=== PATIENT | female | born 1945 | race Caucasian/White ===

== ENCOUNTER → 2021-02-01 | Outpatient (CLI) | payer MEDICARE, OTHER ==
[~2021-02-01] MED LIST: ALBUTEROL SULF8.5 GM INH; ALENDRONATE SOD35 MG PO; CLARITIN10 MG PO; COMMODE MC; DESYREL 50 MG T50 MG PO; FOSAMAX70 MG PO; HYDROCHLOROTHIA25 MG PO; LEVAQUIN750 MG PO; MEDROL DOSEPAK 24 MG PO; NAPROSYN EC 37375 MG PO; NORCO 10-325 T1 EACH PO; OMNICEF 300 MG300 MG PO; OXYGEN; PREVACID30 MG PO; ROBITUSSIN DM473 ML PO; TYLENOL 325MG325 MG PO; VITAMIN D250000 UNIT PO; VITAMIN D50000 UNIT PO; XANAX0.5 MG PO; ZETIA10 MG PO; ZOCOR 40 MG TAB40 MG PO; [UNRECOGNIZED DRUG - SUPPLY] MC
== END ==
LOC: MAMO 01-06 11:30
DX: Z12.31 Encounter for screening mammogram for malignant neoplasm of breast (principal)
CPT/HCPCS: 77063; 77067

== ENCOUNTER 2021-04-10 19:38 | Inpatient (IN) | payer MEDICARE, OTHER ==
[~2021-04-10] VITALS: Ht 157.5 cm; Wt 78.5 kg
[2021-04-10 20:16] LABS: HEMOGLOBIN 17.6 gm/dl (12.3-15.3); RED BLOOD COUNT 5.56 M/UL (4.00-5.10)
[2021-04-10 20:39] LABS: BUN/CREATININE RATIO 18 (0-10)
[2021-04-11] MEDS ORDERED: ALPRAZOLAM0.5 MG PO (00:34)
[2021-04-11] MEDS ORDERED: GABAPENTIN600 MG PO (00:36)
[2021-04-11] MEDS ORDERED: DOXYCYCLINE HY100 MG PO (00:38)
[2021-04-11] MEDS ORDERED: MEDROL DOSEPAK 24 MG PO (00:39)
[2021-04-11] MEDS ORDERED: BREO ELLIPTA 11 EACH INH (00:40)
[2021-04-11] MEDS ORDERED: HYDROCODON-ACE1 EAC6 PO (00:40)
[2021-04-11] MEDS ORDERED: CLARITIN 10MG T10 MG PO (00:40)
[2021-04-11] MEDS ORDERED: ZETIA10 MG PO (00:41)
[2021-04-11] MEDS ORDERED: GLUCOPHAGE 500500 MG GT (00:42)
[2021-04-11] MEDS ORDERED: HYDROCHLOROTHIA25 MG PO (00:43)
[2021-04-11] MEDS ORDERED: LIVALO4 MG PO (00:43)
[2021-04-11] MEDS ORDERED: VENTOLIN HFA 66.7 GM INH (00:44)
[2021-04-11] MEDS ORDERED: VITAMIN D31250 MCG PO (00:44)
[2021-04-11 03:45] LABS: HEMOGLOBIN 15.7 gm/dl (12.3-15.3)
[2021-04-11 04:03] LABS: RED BLOOD COUNT 4.98 M/UL (4.00-5.10); WHITE BLOOD COUNT 7.9 K/UL (4.5-11.0)
[2021-04-11 04:18] LABS: BUN/CREATININE RATIO 17 (0-10)
[2021-04-12 03:27] LABS: HEMOGLOBIN 15.3 gm/dl (12.3-15.3); RED BLOOD COUNT 4.92 M/UL (4.00-5.10)
[2021-04-12 03:31] LABS: WHITE BLOOD COUNT 5.8 K/UL (4.5-11.0)
[2021-04-12 03:50] LABS: BUN/CREATININE RATIO 33 (0-10)
[2021-04-13 04:45] LABS: HEMOGLOBIN 15.7 gm/dl (12.3-15.3); RED BLOOD COUNT 5.01 M/UL (4.00-5.10)
[2021-04-13 04:46] LABS: WHITE BLOOD COUNT 14.3 K/UL (4.5-11.0)
[2021-04-13 05:22] LABS: BUN/CREATININE RATIO 46 (0-10)
[2021-04-14 03:11] LABS: HEMOGLOBIN 15.1 gm/dl (12.3-15.3); RED BLOOD COUNT 4.83 M/UL (4.00-5.10); WHITE BLOOD COUNT 15.7 K/UL (4.5-11.0)
[2021-04-14 03:47] LABS: BUN/CREATININE RATIO 72 (0-10)
[2021-04-15 05:38] LABS: HEMOGLOBIN 14.2 gm/dl (12.3-15.3); RED BLOOD COUNT 4.51 M/UL (4.00-5.10); WHITE BLOOD COUNT 18.3 K/UL (4.5-11.0)
[2021-04-15 05:57] LABS: BUN/CREATININE RATIO 38 (0-10)
[2021-04-16 05:49] LABS: BUN/CREATININE RATIO 29 (0-10)
[2021-04-17 08:55] LABS: HEMOGLOBIN 14.1 gm/dl (12.3-15.3); RED BLOOD COUNT 4.74 M/UL (4.00-5.10); WHITE BLOOD COUNT 20.8 K/UL (4.5-11.0)
[2021-04-17 09:20] LABS: BUN/CREATININE RATIO 36 (0-10)
[2021-04-18 05:55] LABS: HEMOGLOBIN 13.7 gm/dl (12.3-15.3); RED BLOOD COUNT 4.61 M/UL (4.00-5.10); WHITE BLOOD COUNT 17.7 K/UL (4.5-11.0)
[2021-04-18 06:13] LABS: BUN/CREATININE RATIO 32 (0-10)
[2021-04-19 05:34] LABS: HEMOGLOBIN 14.1 gm/dl (12.3-15.3); RED BLOOD COUNT 4.67 M/UL (4.00-5.10); WHITE BLOOD COUNT 15.1 K/UL (4.5-11.0)
[2021-04-19 05:47] LABS: BUN/CREATININE RATIO 29 (0-10)
[2021-04-20 05:26] LABS: HEMOGLOBIN 15.3 gm/dl (12.3-15.3); RED BLOOD COUNT 4.85 M/UL (4.00-5.10)
[2021-04-20 05:45] LABS: BUN/CREATININE RATIO 33 (0-10)
[2021-04-20 05:55] LABS: WHITE BLOOD COUNT 23.1 K/UL (4.5-11.0)
[2021-04-21 03:24] LABS: RED BLOOD COUNT 4.45 M/UL (4.00-5.10)
[2021-04-21 03:51] LABS: BUN/CREATININE RATIO 38 (0-10)
[2021-04-21 03:56] LABS: WHITE BLOOD COUNT 15.9 K/UL (4.5-11.0)
[2021-04-21] MEDS ORDERED: GABAPENTIN300 MG PO (09:37)
[2021-04-21] MEDS ORDERED: POLYETHYLENE GL17 GM PO (09:37)
[2021-04-21] MEDS ORDERED: ELIQUIS 5 MG TAB5 MG PO (09:37)
== END 2021-04-21 14:54 | DRG 208 ==
LOC: ER1 19:38 → CDU 22:22 → PROG CARE 22:22 → CCU 22:22 → PROG CARE 04-11 00:14 → CCU 04-14 09:02 → PROG CARE 04-20 14:56
PROVIDERS: Internal Medicine; Internal Medicine Infectious Disease; Internal Medicine Pulmonary Disease; Student in an Organized Health Care Education/Training Program; ADMIT Family Medicine
PROC: 3E0333Z Introduction of Anti-inflammatory into Peripheral Vein, Percutaneous Approach (ICD-10-PCS; 2021-04-10)
PROC: XW033E5 Introduction of Remdesivir Anti-infective into Peripheral Vein, Percutaneous Approach, New Technology Group 5 (ICD-10-PCS; 2021-04-10)
PROC: B24BZZZ Ultrasonography of Heart with Aorta (ICD-10-PCS; 2021-04-11)
PROC: 0B9L8ZZ Drainage of Left Lung, Via Natural or Artificial Opening Endoscopic (ICD-10-PCS; 2021-04-14)
PROC: 0BH18EZ Insertion of Endotracheal Airway into Trachea, Via Natural or Artificial Opening Endoscopic (ICD-10-PCS; principal; 2021-04-14 07:30)
PROC: 5A1945Z Respiratory Ventilation, 24-96 Consecutive Hours (ICD-10-PCS; principal; 2021-04-14 07:30)
PROC: 3E033XZ Introduction of Vasopressor into Peripheral Vein, Percutaneous Approach (ICD-10-PCS; 2021-04-20)
DX: U07.1 COVID-19 (principal); J12.82 Pneumonia due to coronavirus disease 2019; J96.21 Acute and chronic respiratory failure with hypoxia; I48.92 Unspecified atrial flutter; J44.0 Chronic obstructive pulmonary disease with (acute) lower respiratory infection; J98.11 Atelectasis; E87.1 Hypo-osmolality and hyponatremia; R57.9 Shock, unspecified; T17.890A Other foreign object in other parts of respiratory tract causing asphyxiation, initial encounter; I47.1 Supraventricular tachycardia; Z66 Do not resuscitate; I10 Essential (primary) hypertension; F17.210 Nicotine dependence, cigarettes, uncomplicated; E78.5 Hyperlipidemia, unspecified; L44.9 Papulosquamous disorder, unspecified; G47.33 Obstructive sleep apnea (adult) (pediatric); Z96.662 Presence of left artificial ankle joint; E87.6 Hypokalemia; E11.40 Type 2 diabetes mellitus with diabetic neuropathy, unspecified; E11.65 Type 2 diabetes mellitus with hyperglycemia; I48.0 Paroxysmal atrial fibrillation; K21.9 Gastro-esophageal reflux disease without esophagitis; M19.90 Unspecified osteoarthritis, unspecified site; F41.9 Anxiety disorder, unspecified; I08.2 Rheumatic disorders of both aortic and tricuspid valves; Z79.4 Long term (current) use of insulin; Z88.0 Allergy status to penicillin; Z88.8 Allergy status to other drugs, medicaments and biological substances; Z79.01 Long term (current) use of anticoagulants; Z82.49 Family history of ischemic heart disease and other diseases of the circulatory system; Z82.0 Family history of epilepsy and other diseases of the nervous system; Z98.49 Cataract extraction status, unspecified eye; Z90.710 Acquired absence of both cervix and uterus; Z99.81 Dependence on supplemental oxygen; Z85.42 Personal history of malignant neoplasm of other parts of uterus; Z87.11 Personal history of peptic ulcer disease; Z80.1 Family history of malignant neoplasm of trachea, bronchus and lung
CPT/HCPCS: ECHO; 0240U; 36415; 36600; 51702; 71045; 80048; 80053; 82550; 82553; 82728; 82803; 82962; 83605; 83615; 83690; 83735; 83874; 83880; 84100; 84132; 84439; 84443; 84484; 85025; 85027; 85379; 86140; 86900; 86901; 87070; 87205; 93005; 93306; 94002; 94003; 94640; 94660; 94668; 94760; 96374; 99285; C1751; J0282; J0456; J0696; J1100; J1160; J1940; J2270; J2370; J2405; J2704; J3475; J3480; J7030; J7070; J7120; Q9967; U0002